=== PATIENT | female | born 1995 | race Caucasian/White ===

== ENCOUNTER → 2024-07-29 | Outpatient (CLI) | payer BC, SELFPAY | END | disposition home or self-care (01) | LOC: LABSPEC 16:43 | PROVIDERS: Referring Provider Nurse Practitioner Family; Visit Provider Nurse Practitioner Family | DX: Z12.4 Encounter for screening for malignant neoplasm of cervix (principal) | CPT/HCPCS: 87624; 88175; G0145 ==

== ENCOUNTER → 2024-08-07 | Outpatient (CLI) | payer BC, SELFPAY ==
--- NOTE | 2024-08-07 09:12 | US_ITS ---
PROCEDURE: PELVIC W/ TRANSVAGINAL 08/07/2024 REASON FOR EXAM: PELVIC PAIN TECHNIQUE: Transabdominal and transvaginal pelvic ultrasound COMPARISON: None. FINDINGS: The uterus is retroverted measuring 8.2 x 5.4 x 3.7 cm. No uterine mass is noted. Mild amount of free fluid is noted in the pelvis. Unremarkable bladder measuring 462 cc in volume. The right ovary measures 3.4 x 2.8 x 1.8 cm. Right ovarian cyst measuring 2.5 x 2.5 x 1.3 cm. The left ovary measures 3.4 x 2.3 x 1.8 cm. Left ovarian follicle/cyst measuring 1.2 x 1.6 x 1.1 cm. Normal bilateral ovarian flow without evidence of ovarian torsion. US/Pelvic w/ Transvaginal IMPRESSION: 1. Retroverted uterus. 2. Mild amount of free fluid in the pelvis. 3. Bilateral ovarian cysts. 4. Normal bilateral ovarian flow without evidence of ovarian torsion. Reading [facility]
== END | disposition home or self-care (01) ==
LOC: US 09:10
PROVIDERS: PCP Family Medicine; Referring Provider Nurse Practitioner Family; Visit Provider Nurse Practitioner Family
DX: R10.2 Pelvic and perineal pain (principal)
CPT/HCPCS: 76830; 76856